=== PATIENT | male | born 1990 | race Caucasian/White ===

== ENCOUNTER 2017-01-20 14:36 | Emergency (ER) | payer OTHER ==
[~2017-01-20] VITALS: Ht 167.6 cm; Wt 63.5 kg
[2017-01-20 14:46] VITALS: BP 126/82
--- NOTE | 2017-01-20 15:06 | RAD ---
Indication: Chest pain and dyspnea for 2 weeks, progressively worsening. Technique: Two-view chest radiograph was obtained. No comparison is available. Findings: The lungs are clear. The cardiopulmonary silhouette is within normal limits. There is no pleural effusion. The bony structures are intact. Impression: No acute thoracic findings.
--- NOTE | 2017-01-20 15:16 | PHYS DOC ---
Past Medical History Past Medical History: No Pertinent History Past Surgical History: No Surgical History Alcohol Use: None Drug Use: None Adult General Chief Complaint Chief Complaint: CHEST WALL PAIN HPI HPI Patient is a 26 year old male resents emergency department stating that he has having chest pain that goes across his upper chest. He states that the pain increases more when he takes a deep breath. His been going on for about the last week. He has not taken anything for pain and discomfort. He denies any injury or trauma. He denies taking anything to help with the pain. Patient denies any shortness of air difficulty breathing. Denies any fever, chills or nausea vomiting. Review of Systems Review of Systems Constitutional: Denies fever or chills [] Eyes: Denies change in visual acuity, redness, or eye pain [] HENT: Denies nasal congestion or sore throat [] Respiratory: Denies cough or shortness of breath [] Cardiovascular: No additional information not addressed in HPI [] GI: Denies abdominal pain, nausea, vomiting, bloody stools or diarrhea [] : Denies dysuria or hematuria [] Musculoskeletal: Denies back pain or joint pain [] Integument: Denies rash or skin lesions [] Neurologic: Denies headache, focal weakness or sensory changes [] Endocrine: Denies polyuria or polydipsia [] Allergies Allergies Allergies Coded Allergies Type Severity Reaction Last Updated Verified No Known Drug Allergies 01/07/14 No Physical Exam Physical Exam Constitutional: Well developed, well nourished, no acute distress, non-toxic appearance. [] HENT: Normocephalic, atraumatic, bilateral external ears normal, oropharynx moist, no oral exudates, nose normal. [] Eyes: PERRLA, EOMI, conjunctiva normal, no discharge. [] Neck: Normal range of motion, no tenderness, supple, no stridor. [] Cardiovascular:Heart rate regular rhythm, no murmur. Chest wall tenderness noted upon palpation. Lungs & Thorax: Bilateral breath sounds clear to auscultation [] Skin: Warm, dry, no erythema, no rash. [] Back: No tenderness Extremities: No tenderness, no cyanosis, no clubbing, ROM intact, no edema. [] Neurologic: Alert and oriented X 3, normal motor function, normal sensory function, no focal deficits noted. [] Psychologic: Affect normal, judgement normal, mood normal. [] Current Patient Data Vital Signs Vital Signs Date Time Temp Pulse Resp B/P (MAP) Pulse Ox O2 Delivery O2 Flow Rate FiO2 01/20/17 14:46 98.0 65 16 126/82 (97) 100 Room Air 98.0 EKG EKG [] Radiology/Procedures Radiology/Procedures [facility] [address] [place] [address] IMAGING REPORT Signed PATIENT: GUNNAR HERNANDEZ ACCOUNT: [id number] : 1990 LOCATION: ER AGE: 26 SEX: M EXAM STATUS: PRE ER ORD. PHYSICIAN: LONDON WILLIAMSON APRN REASON: PAIN WITH BREATHING PROCEDURE: CHEST PA & LATERAL Indication: Chest pain and dyspnea for 2 weeks, progressively worsening. Technique: Two-view chest radiograph was obtained. No comparison is available. Findings: The lungs are clear. The cardiopulmonary silhouette is within normal limits. There is no pleural effusion. The bony structures are intact. Impression: No acute thoracic findings. DICTATED and SIGNED BY: SOPHIA COVINGTON MD DATE: 01/20/17 1504 CC: LONDON WILLIAMSON APRN; NO PCP ~ [] Course & Med Decision Making Course & Med Decision Making Pertinent Labs and Imaging studies reviewed. (See chart for details) Chest x-ray was negative by radiology. Patient will be discharged home with recommendations for ibuprofen 800 mg every 8 hours with food stop taking few develop an upset stomach. Patient agrees with discharge instructions treatment regimens and follow-up recommendations. Shunt was also recommended to use warm moist packs to the chest wall area. Signs and symptoms to return back to emergency department as been provided. [] Dragon Disclaimer Dragon Disclaimer This electronic medical record was generated, in whole or in part, using a voice recognition dictation system. Departure Departure Impression: Primary Impression: Chest wall pain Disposition: HOME, SELF-CARE Condition: STABLE Referrals: NO PCP (PCP) Patient Instructions: Chest Wall Pain, [id number] Additional Instructions: Chest x-ray was negative for any abnormalities. Your being treated for chest wall pain and discomfort Ibuprofen 800 mg every 8 hours with food stop taking few develop an upset stomach. Warm moist packs to the chest wall area. Follow-up the primary care physician in the next 5-7 days. Return back to emergency prior signs symptoms of become worse. LONDON WILLIAMSON FIELD MAP TECHNICIAN January 20, 2017 15:16
== END 2017-01-20 15:40 | disposition home or self-care (01) ==
LOC: ER 15:38
DX: R07.89 Other chest pain (principal)
CPT/HCPCS: 71020; 99284-25